=== PATIENT | female | born 1960 | race Caucasian/White ===

== ENCOUNTER 2017-06-05 23:58 | Emergency (ER) | payer OTHER ==
[~2017-06-05] VITALS: Ht 144.8 cm; Wt 66.7 kg
[~2017-06-05 23:58] MED LIST: CRUTCH1 EACH; CYMBALTA20 MG; GLUCOPHAGE500 MG PO; NORCO 5-325 TA1 EACH PO; TRAMADOL HCL50 MG PO; TYLENOL325 MG PO
== END 2017-06-06 00:22 | disposition home or self-care (01) ==
LOC: ED 23:58
DX: J02.9 Acute pharyngitis, unspecified (principal); F32.9 Major depressive disorder, single episode, unspecified; Z79.899 Other long term (current) drug therapy
CPT/HCPCS: 99282

== ENCOUNTER 2018-02-10 08:43 | Emergency (ER) | payer OTHER ==
[~2018-02-10] VITALS: Ht 144.8 cm; Wt 66.7 kg
== END 2018-02-10 09:08 | disposition home or self-care (01) ==
LOC: ED 08:43
DX: J02.9 Acute pharyngitis, unspecified (principal)

== ENCOUNTER 2019-04-15 11:52 | Day surgery (SDC) | payer OTHER ==
[~2019-04-15] VITALS: Ht 147.3 cm; Wt 67.1 kg
[~2019-04-15 11:52] MED LIST changes: +ALLERGY REL5 MG/5 ML PO; +AMOXICILLIN500 MG PO; +VENTOLIN HFA18 GM INH
--- NOTE | 2019-04-15 14:37 | NUR ---
04/15/19 1437 Judy Iraheta 1426 PT ARRIVED IN PACU AWAKE ASKING MANY QUESTIONS ABOUT PROCEDURE. ALL QUESTIONS ANSWERED. ABD SOFT AND LAYING ON L SIDE.
--- NOTE | 2019-04-16 09:39 | OR ---
[facility] [address] [place], [place] [address] Signed DATE OF OPERATION: 04/15/2019 SURGEON: Claude Vera MD PREOPERATIVE DIAGNOSIS: Screening colonoscopy. POSTOPERATIVE DIAGNOSIS: Small polyp of right cecum (excised). PROCEDURE PERFORMED: Total colonoscopy to cecum with cold morcellation polypectomy x1. ANESTHESIA: Intravenous sedation, fentanyl 100 mcg, Versed 3.5 mg. INDICATIONS: This 58-year-old white woman is a patient of Dr. Sykes and is referred for screening colonoscopy. She has never had colonoscopy in the past. She has no symptoms of bleeding, diarrhea, or constipation, and no family history of colon cancer. She understands the risks of bleeding, infection, and perforation related to colonoscopy and wished to proceed. It is noted that her suffered complications from a colonoscopy elsewhere and she is doubly concerned about that possibility. She is reassured in that regard. FINDINGS: The prep was excellent. Complete colonoscopy was undertaken to the cecum without question. There was one small polyp of the ascending colon, really at the junction between the cecum and the right colon on a fold. Narrow band imaging confirmed findings suggestive of adenoma. The lesion was completely extirpated with cold morcellation technique. The remaining colon was normal. DESCRIPTION OF PROCEDURE: The patient was brought to the endoscopy suite and placed in lateral decubitus position, given intravenous sedation to the point of slurred speech and nystagmus. Digital rectal examination was normal. An Olympus video colonoscope was passed in the rectum and manipulated throughout the colon ultimately intubating the cecum itself. The ileocecal valve and appendiceal orifice were normal. The scope was withdrawn and a small polypoid lesion was noted on a fold. This was excised with cold morcellation technique Electronically Signed By: CLAUDE VERA MD 04/16/19 0939 PATIENT NAME: ELEUTERIO CUMMINGS OPERATIVE REPORT DATE OF : 58 REPORT #: [id number] PHYSICIAN: CLAUDE VERA MD PCP: DEO SYKES DO REPORT IS CONFIDENTIAL AND NOT TO BE RELEASED WITHOUT AUTHORIZATION [facility] [address] [place], [place] [address] Signed completely. The scope was carefully withdrawn and remaining evaluation showed no sign of polyps, diverticular formation, colitis, or cancer. Retroflex view was normal as well. The scope was removed. The patient was taken to recovery room in good condition. CONCLUDING DIAGNOSIS: Small polyp of right colon at ascending and cecal junction completely excised. PLAN: Recommend repeat colonoscopy in 3 years, sooner if clinically indicated depending on the findings. If it is hyperplastic, she can go five years. MD CE Tillman/RYLAND /[id number] cc: Deo Sykes DO Copies: DEO SYKES DO ~ Electronically Signed By: CLAUDE VERA MD 04/16/19 0939 PATIENT NAME: ELEUTERIO CUMMINGS OPERATIVE REPORT DATE OF : 58 REPORT #: [id number] PHYSICIAN: CLAUDE VERA MD PCP: DEO SYKES DO REPORT IS CONFIDENTIAL AND NOT TO BE RELEASED WITHOUT AUTHORIZATION
--- NOTE | 2019-04-16 13:25 | PATH ---
[facility] [address] [id number] Signed SPECIMEN(S): A CECAL POLYP SPECIMEN SOURCE: A. CECAL POLYP CLINICAL HISTORY: Screening. Post-op: Polyp of cecum. MICROSCOPIC DESCRIPTION: Histologic sections of all submitted blocks are examined by light microscopy. These findings, together with the gross examination, support the pathologic diagnosis. FINAL PATHOLOGIC DIAGNOSIS: Mucosa, cecum, biopsy: - Tubular adenoma. LJA:cml:C2NR GROSS DESCRIPTION: The specimen, labeled "PP, cecal polyp," is received in formalin and consists of three, 0.1-0.2 cm humphrey-brown tissue fragments. The specimen is entirely submitted in cassette (A1). AM (under the direct supervision of a pathologist) The Gross Description was prepared using a voice recognition system. The report was reviewed for accuracy; however, sound-alike word errors, addition and/or deletions may occur. If there is any question about this report, please contact Client Services. PERFORMING LABORATORY: The technical component was performed by [facility], [address] [place] [id number] (Milk Runner: Nancy Dick MD; CLIA# [id number]). Professional interpretation was performed by [facility], [address] [address] (Milk Runner: Julien Rutledge MD; CLIA# [id number]). Diagnostician: Julien Rutledge MD Pathologist Electronically Signed 04/16/2019 Copies: PATIENT NAME: ELEUTERIO CUMMINGS PATHOLOGY DATE OF : 58 REPORT #: [id number] PHYSICIAN: [facility] PCP: DEEDEE SYKES DO REPORT IS CONFIDENTIAL AND NOT TO BE RELEASED WITHOUT AUTHORIZATION [address] [address] Signed ~ PATIENT NAME: ELEUTERIO CUMMINGS PATHOLOGY DATE OF : 58 REPORT #: [id number] PHYSICIAN: [facility] PCP: DEEDEE SYKES DO REPORT IS CONFIDENTIAL AND NOT TO BE RELEASED WITHOUT AUTHORIZATION
== END 2019-04-15 15:03 | disposition home or self-care (01) ==
LOC: DS 11:52 → OPS 11:52 → DS 13:00 → OPS 14:00
PROVIDERS: Surgery
PROC: 0DBH8ZZ Excision of Cecum, Via Natural or Artificial Opening Endoscopic (ICD-10-PCS; principal; 2019-04-15 14:00)
DX: Z12.11 Encounter for screening for malignant neoplasm of colon (principal); D12.0 Benign neoplasm of cecum; K21.9 Gastro-esophageal reflux disease without esophagitis; F32.9 Major depressive disorder, single episode, unspecified; J45.909 Unspecified asthma, uncomplicated; J68.3 Other acute and subacute respiratory conditions due to chemicals, gases, fumes and vapors; K21.0 Gastro-esophageal reflux disease with esophagitis
CPT/HCPCS: 99153; G0500; J2250; J3010

== ENCOUNTER 2021-11-13 22:57 | Emergency (ER) | payer OTHER ==
[~2021-11-13] VITALS: Ht 147.3 cm; Wt 65.3 kg
[~2021-11-13 22:57] MED LIST changes: +METFORMIN HCL500 M1 PO; +VITAMIN D31250 MC1 PO
[2021-11-13] MEDS ORDERED: CLARITIN10 M2 PO (23:22)
[2021-11-14] MEDS ORDERED: NAPROSYN500 MG PO (00:03)
== END 2021-11-14 00:34 | disposition home or self-care (01) ==
LOC: ED 22:57
DX: S93.401A Sprain of unspecified ligament of right ankle, initial encounter (principal); X50.1XXA Overexertion from prolonged static or awkward postures, initial encounter; Z79.899 Other long term (current) drug therapy; Z79.84 Long term (current) use of oral hypoglycemic drugs
CPT/HCPCS: 73610; 99283-25

== ENCOUNTER 2023-06-27 09:55 | Emergency (ER) | payer OTHER ==
[~2023-06-27] VITALS: Ht 147.3 cm; Wt 83.4 kg
[~2023-06-27 09:55] MED LIST changes: +ATORVASTATIN CA20 MG PO; +CLARITIN10 M2 PO; +DULOXETINE HCL20 MG PO; +GUAIFEN-CODEINE10 ML PO; +LISINOPRIL20 MG PO; +MELOXICAM15 MG PO; +NAPROSYN500 MG PO
[2023-06-27] MEDS ORDERED: ACETAMINOPHEN 500 MG TAB PO ONE (11:30)
[2023-06-27] MEDS ORDERED: LIDOCAINE HCL 4% 1 EACH PATCH TD ONE (11:30)
[2023-06-27] MEDS ORDERED: KETOROLAC TROMETHAMINE 60 MG/2 ML VIAL IM ONE (11:30)
[2023-06-27] MEDS ORDERED: predniSONE 20 MG TAB PO ONE (11:30)
[2023-06-27] MEDS ORDERED: LIDODERM1 EACH TOP (13:55)
[2023-06-27] MEDS ORDERED: METHYLPREDNISOLO4 M1 PO (13:55)
[2023-06-27 14:07] VITALS: BP 116/63
[2023-06-27] MEDS ORDERED: LIDOCAINE PATCH REMOVAL 1 EA TD SCH (21:00)
== END 2023-06-27 14:07 | disposition home or self-care (01) ==
LOC: ED 09:55
DX: M54.41 Lumbago with sciatica, right side (principal); J45.909 Unspecified asthma, uncomplicated; F32.A Depression, unspecified; I10 Essential (primary) hypertension; Z79.899 Other long term (current) drug therapy
CPT/HCPCS: 96372; 99283; A9270; J1885; J7512

== ENCOUNTER 2023-10-19 13:17 | Emergency (ER) | payer OTHER ==
[~2023-10-19] VITALS: Ht 147.3 cm; Wt 69.4 kg
[~2023-10-19 13:17] MED LIST changes: +LIDODERM1 EACH TOP; +METHYLPREDNISOLO4 M1 PO
[2023-10-19 17:45] VITALS: BP 132/84
== END 2023-10-19 17:47 | disposition home or self-care (01) ==
LOC: ED 13:17
DX: S93.401A Sprain of unspecified ligament of right ankle, initial encounter (principal); I10 Essential (primary) hypertension; E78.5 Hyperlipidemia, unspecified; J45.909 Unspecified asthma, uncomplicated; W01.0XXA Fall on same level from slipping, tripping and stumbling without subsequent striking against object, initial encounter; Z79.899 Other long term (current) drug therapy
CPT/HCPCS: 73610; 99283-25

== ENCOUNTER 2025-01-23 12:48 | Emergency (ER) | payer MEDICARE ==
[~2025-01-23] VITALS: Ht 147.3 cm; Wt 65.8 kg
[2025-01-23] MEDS ORDERED: ALBUTEROL/IPRATROPIUM 3 ML NEB INH ONE (16:15)
[2025-01-23 16:39] LABS: CORONAVIRUS COVID-19 AG NEGATIVE (NEGATIVE)
[2025-01-23] MEDS ORDERED: BENZONATATE200 MG PO (17:49)
[2025-01-23 17:53] VITALS: BP 127/78
== END 2025-01-23 17:54 | disposition home or self-care (01) ==
LOC: ED 12:48
PROVIDERS: Emergency Medicine
DX: J40 Bronchitis, not specified as acute or chronic (principal); I10 Essential (primary) hypertension; R73.03 Prediabetes; E78.5 Hyperlipidemia, unspecified; Z79.899 Other long term (current) drug therapy
CPT/HCPCS: 36415; 71046; 87651; 94640; 99284-25